=== PATIENT | male | born 1925 | race Caucasian/White ===

== ENCOUNTER → 2017-01-27 | Outpatient (CLI) | payer OTHER, MEDICARE ==
[~2017-01-27] MED LIST: COREG3.125 MG PO; COREG6.25 MG; COUMADIN 2 MG TA2 M1 PO; COZAAR 50 MG TA50 M2; COZAAR 50 MG TA50 M2 PO; DEMADEX20 MG; LASIX 40 MG TAB40 M2 PO; LEVOTHYROXINE0.05 MG PO; METOLAZONE 2.52.5 M1 PO; MILK OF MA2400 MG/10; PACERONE 200 M200 M1 PO; PRAVACHOL20 MG PO; REGLAN 10 MG TA10 MG; ZANTAC 150MG T150 MG PO
== END ==
LOC: RAD 15:50
DX: I50.30 Unspecified diastolic (congestive) heart failure (principal); J90 Pleural effusion, not elsewhere classified; J98.11 Atelectasis

== ENCOUNTER → 2017-02-26 | Outpatient (CLI) | payer OTHER, MEDICARE | LOC: RAD 11:33 | DX: I50.30 Unspecified diastolic (congestive) heart failure (principal); I51.7 Cardiomegaly; J90 Pleural effusion, not elsewhere classified ==